=== PATIENT | male | born 1965 | race Caucasian/White ===

== ENCOUNTER 2016-12-27 19:31 | Emergency (ER) | payer OTHER ==
--- NOTE | 2016-12-27 19:51 | EDPHY ---
H & P Time Seen by Provider: 12/27/16 19:47 HPI/ROS: CHIEF COMPLAINT: Left knee pain HISTORY OF PRESENT ILLNESS: Patient is a 51-year-old man who comes to the emergency department complaining of left knee pain. He states that he has pain primarily just below his kneecap. He states that he was kneeling cleaning the floor to yazdanism last week. He also did some exercises on Friday by balancing on 1 knee at a time. Starting that evening over the next 4 or 5 days he has had gradually increased knee pain that improves slightly with massage improved significantly with Aleve. He denies any falls or trauma. He is able to bear weight but with pain. It hurts him to stand on his toes. He has not been jumping. No back pain or hip pain. REVIEW OF SYSTEMS: Constitutional: denies: chills, fever, recent illness, recent injury EENTM: denies: blurred vision, double vision, nose congestion Respiratory: denies: cough, shortness of breath Cardiac: denies: chest pain, irregular heart rate, lightheadedness, palpitations Gastrointestinal/Abdominal: denies: abdominal pain, diarrhea, nausea, vomiting, blood streaked stools Genitourinary: denies: dysuria, frequency, hematuria, pain Musculoskeletal: See HPI Skin: denies: lesions, rash, jaundice, bruising Neurological: denies: headache, numbness, paresthesia, tingling, dizziness, weakness Hematologic/Lymphatic: denies: blood clots, easy bleeding, easy bruising Immunologic/allergic: denies: HIV/AIDS, transplant EXAM: GENERAL: Well-appearing, well-nourished and in no acute distress. HEAD: Atraumatic, normocephalic. EYES: Pupils equal round and reactive to light, extraocular movements intact, sclera anicteric, conjunctiva are normal. ENT: TMs normal, nares patent, oropharynx clear without exudates. Moist mucous membranes. NECK: Normal range of motion, supple without lymphadenopathy or JVD. LUNGS: Breath sounds clear to auscultation bilaterally and equal. No wheezes rales or rhonchi. HEART: Regular rate and rhythm without murmurs, rubs or gallops. ABDOMEN: Soft, nontender, normoactive bowel sounds. No guarding, no rebound. No masses appreciated. BACK: No CVA tenderness, no spinal tenderness, step-offs or deformities EXTREMITIES: Pain and mild tenderness and slight swelling to patellar tendon, pain with leg extension but 5/5 strength. Pain with toe raise. And with plantar flexion. No palpable effusion or crepitus. Normal pulses and sensation distally. NEUROLOGICAL: Cranial nerves II through XII grossly intact. Normal speech, normal gait. 5/5 strength, normal movement in all extremities, normal sensation PSYCH: Normal mood, normal affect. SKIN: Warm, dry, normal turgor, no visible rashes or lesions. Source: Patient, Family Exam Limitations: No limitations - Medical/Surgical History Hx Asthma: No Hx Chronic Respiratory Disease: No Hx Diabetes: No Hx Cardiac Disease: No Hx Renal Disease: No Hx Cirrhosis: No Hx Alcoholism: No - Family History Significant Family History: No pertinent family hx - Social History Smoking Status: Never smoked Alcohol Use: Sober Drug Use: None Constitutional: Initial Vital Signs Temperature (C) 36.7 C 12/27/16 19:52 Heart Rate 104 H 12/27/16 19:52 Respiratory Rate 16 12/27/16 19:52 Blood Pressure 141/110 H 12/27/16 19:52 O2 Sat (%) 95 12/27/16 19:52 O2 Delivery Mode Room Air Allergies/Adverse Reactions: No Known Allergies Allergy (Unverified 12/27/16 20:24) Home Medications: Medication Instructions Recorded NK [No Known Home Meds] 12/27/16 Medical Decision Making - Diagnostics Imaging Results: Imaging Impressions Knee X-Ray 12/27/16 19:48 Impression: Radiographically negative left knee. X-ray: Left knee was obtained. I viewed the images myself on the PACS system. My interpretation of the images is: Negative for fracture. The radiologist interpretation is pending. Procedures: Procedure: Splint placement. A straight leg brace splint was applied. After application of the splint I returned and re-examined the patient. The splint was adequately immobilizing the joint and distal to the splint the patient's circulation and sensation was intact. ED Course/Re-evaluation: The patient's symptoms and exam are consistent with patellar tendinitis. We discussed rest, anti-inflammatories and ice. We discussed x-ray results which are reassuring. Discussed brace and follow-up. He is happy with this and declines further workup or testing at this time. Will refer him to Orthopedics. Differential Diagnosis: Partial list of the Differential diagnosis considered include but were not limited to; tendinitis, bursitis and although unlikely based on the history and physical exam, I also considered patella fracture, knee fracture, vascular injury, nerve injury. I discussed these differential diagnoses and the plan with the patient as well as the usual and expected course. The patient understands that the diagnosis is provisional and that in medicine we are not always correct and that further workup is often warranted. Usual and customary warnings were given. All of the patient's questions were answered. The patient was instructed to return to the emergency department should the symptoms at all worsen or return, otherwise to followup with the physician as we discussed. - Data Points Medications Given: Discontinued Medications Hydrocodone Bitart/Acetaminophen ([place] 5/325mg Prepack#6) 1 btl TAKEHOME EDNOW ONE Stop: 12/27/16 20:32 Last Admin: 12/27/16 20:35 Dose: 1 btl Departure - Departure Disposition: Home, Routine, Self-Care Clinical Impression: Patellar tendinitis of left knee Condition: Fair Instructions: Tendinitis (ED), Knee Immobilizer (ED) Referrals: Joel Flores MD [Medical Doctor] - As per Instructions
[2016-12-27 20:03] VITALS: TEMP 98.1; O2SAT 95
[2016-12-27] MEDS ORDERED: HYDROCOD/APAP 5/325 PREPACK#6 BTL TAKEHOME ONE (20:31)
[2016-12-27 20:33] VITALS: BP 132/96; PULSE 98; RESP 14
== END 2016-12-27 20:46 | disposition home or self-care (01) ==
LOC: CED 19:31
DX: M76.52 Patellar tendinitis, left knee (principal)
CPT/HCPCS: 73564-PO; L1830